=== PATIENT | male | born 1980 | race Caucasian/White ===

== ENCOUNTER 2021-11-26 09:05 | Emergency (ER) | payer OTHER ==
[~2021-11-26 09:05] MED LIST: SULFAMETHOXAZO1 EACH PO
[2021-11-26 10:11] LABS: BASOPHIL 0.4 % (0-2); HCT 48.3 % (42.0-52.0); HGB 16.4 g/dl (13.2-18.0); LYMPHOCYTE 26.9 % (15-48); MCH 31.4 pg (25.0-31.0); MCV 92.4 fL (78.0-100.0); MONOCYTE 10.3 % (0-12); MPV 8.8 fL (6.0-9.5); NEUTROPHIL 59.7 % (41-80); NRBC 0; PLT 331 K/uL (150-400); RBC 5.23 M/uL (4.70-6.00); WBC 7.1 K/uL (4.0-10.5)
[2021-11-26 10:25] LABS: BUN/CREAT RATIO (CALC) 11.1 RATIO; C-REACTIVE PROTEIN 0.5 mg/dL (<=0.90); CREATININE 0.99 mg/dL (0.67-1.17); POTASSIUM 4.5 mmol/L (3.5-5.1)
== END 2021-11-26 12:17 | disposition other institution (70) ==
LOC: FER 09:05
PROVIDERS: Emergency Medicine
DX: S60.352A Superficial foreign body of left thumb, initial encounter (principal); K21.9 Gastro-esophageal reflux disease without esophagitis; Z88.0 Allergy status to penicillin; Z79.899 Other long term (current) drug therapy; W45.8XXA Other foreign body or object entering through skin, initial encounter; Y92.009 Unspecified place in unspecified non-institutional (private) residence as the place of occurrence of the external cause
CPT/HCPCS: 36415; 73200; 80048; 85025; 86140; 87070; 87077; 87186; 87205; 90715